=== PATIENT | female | born 1980 | race Hispanic/Latino ===

== ENCOUNTER 2018-08-06 09:52 | Emergency (ER) | payer OTHER ==
[2018-08-06] MEDS ORDERED: PEPCID PO ONE (10:32)
[2018-08-06] MEDS ORDERED: ZOFRAN ODT PO ONE (10:32)
[2018-08-06] MEDS ORDERED: ULTRAM PO ONE (10:32)
[2018-08-06] MEDS ORDERED: FLAGYL PO ONE (11:15)
[2018-08-06] MEDS ORDERED: XYLOCAINE 1% MPF 5 mL INFILTRATI ONE (11:15)
[2018-08-06] MEDS ORDERED: ZITHROMAX PO ONE (11:15)
[2018-08-06] MEDS ORDERED: ROCEPHIN IM ONE (11:15)
[2018-08-06 11:19] LABS: Basophils % (Auto) 0.7 % (0.0-1.8); Eosinophils # (Auto) 0.1 K/mm3 (0.0-0.4); Eosinophils % (Auto) 1.5 % (0.0-4.3); Hematocrit 37.5 % (30.3-42.9); Hemoglobin 12.9 gm/dl (10.1-14.3); Lymphocytes # (Auto) 2.1 K/mm3 (1.2-5.4); Lymphocytes % (Auto) 37.8 % (13.4-35.0); Mean Corpuscular HGB Conc 34 % (30-34); Mean Corpuscular Volume 94 fl (79-97); Monocytes # (Auto) 0.5 K/mm3 (0.0-0.8); Platelet Count 255 K/mm3 (140-440); Red Blood Count 3.99 M/mm3 (3.65-5.03); Red Cell Distribution Width 12.2 % (13.2-15.2)
[2018-08-06 11:39] LABS: Bacteria,Urine 4+ /HPF (Negative); Bilirubin,Urine NEG (Negative); Blood,Urine NEG (Negative); Color,Urine Amber (Yellow); Mucus,Urine 3+ /HPF; Protein,Urine <15 mg/dL mg/dL (Negative); Urobilinogen,Urine < 2.0 mg/dL (<2.0)
[2018-08-06 11:42] LABS: Alanine Aminotransferase 9 units/L (7-56); Albumin 4.1 g/dL (3.9-5); BUN/Creatinine Ratio 22; Blood Urea Nitrogen 13 mg/dL (7-17); Calcium 8.7 mg/dL (8.4-10.2); Hemolysis Index 4
--- NOTE | 2018-08-06 12:39 | Ultrasound Report ---
Sonogram right upper quadrant: Next History: Right upper quadrant pain/epigastric pain. Findings: Normal aorta measures 1.7 cm. Fatty liver. No intrahepatic or extrahepatic ductal dilatation. Common bile duct diameter 2.5 mm. Gallbladder wall thickness 1.9 mm. Thick bile or sludge within the gallbladder. No pericholecystic fluid. Right kidney 10.5 x 5.2 x 5.4 cm. Cortical thickness 1.4 cm. Pancreas obscured by bowel gas. Impression: Thick bile or sludge within the gallbladder. Fatty liver.
--- NOTE | 2018-08-06 13:08 | Emergency Department Report ---
ED Abdominal Pain HPI - General Chief Complaint: Abdominal Pain Stated Complaint: ABD PAIN/NAUSEA Time Seen by Provider: 08/06/18 10:27 Source: patient Mode of arrival: Ambulatory Limitations: No Limitations - History of Present Illness Initial Comments: Patient is a 38-year-old female who is presenting with 6 days of epigastric discomfort. Patient states that it is associated with some nausea but she denies vomiting or diarrhea. Patient states the pain is constant low level but occasionally is worse. Patient states that it has decreased appetite. Patient denies any fevers chills at this time. Patient denies any dysuria vaginal discharge however she states she has had a known exposure to an STD. She is on sure which one she has been exposed to. Severity scale (0 -10): 6 - Related Data Previous Rx's Medication Instructions Recorded Last Taken Type Ibuprofen [Ibu] 600 mg PO Q6HR PRN #20 tablet 08/06/18 Unknown Rx Nitrofurantoin Monohyd/M-Cryst 100 mg PO BID #14 capsule 08/06/18 Unknown Rx [Macrobid 100 mg Capsule] Ondansetron [Zofran Odt] 4 mg PO Q8HR #10 tab.rapdis 08/06/18 Unknown Rx traMADol [Ultram] 50 mg PO Q6HR PRN #12 tablet 08/06/18 Unknown Rx Allergies Allergy/AdvReac Type Severity Reaction Status Date / Time No Known Allergies Allergy Unverified 08/06/18 09:59 ED Review of Systems ROS: Stated complaint: ABD PAIN/NAUSEA Other details as noted in HPI Comment: All other systems reviewed and negative ED Past Medical Hx - Medications Home Medications: Home Medications Medication Instructions Recorded Confirmed Last Taken Type Ibuprofen [Ibu] 600 mg PO Q6HR PRN #20 tablet 08/06/18 Unknown Rx Nitrofurantoin Monohyd/M-Cryst 100 mg PO BID #14 capsule 08/06/18 Unknown Rx [Macrobid 100 mg Capsule] Ondansetron [Zofran Odt] 4 mg PO Q8HR #10 tab.rapdis 08/06/18 Unknown Rx traMADol [Ultram] 50 mg PO Q6HR PRN #12 tablet 08/06/18 Unknown Rx ED Physical Exam - General Limitations: No Limitations General appearance: alert, in no apparent distress - Head Head exam: Present: atraumatic, normocephalic - Eye Eye exam: Present: normal appearance - ENT ENT exam: Present: mucous membranes moist - Neck Neck exam: Present: normal inspection - Respiratory Respiratory exam: Present: normal lung sounds bilaterally. Absent: respiratory distress, wheezes, rales, rhonchi, stridor - Cardiovascular Cardiovascular Exam: Present: regular rate, normal rhythm. Absent: systolic murmur, diastolic murmur, rubs, gallop - GI/Abdominal GI/Abdominal exam: Present: soft, tenderness (patient has some mild tenderness to the right upper quadrant and epigastrium. Patient also has tenderness to the suprapubic region. Is no rebound or guarding present.), normal bowel sounds. Absent: distended, guarding, rebound, rigid - Extremities Exam Extremities exam: Present: normal inspection - Back Exam Back exam: Present: normal inspection - Neurological Exam Neurological exam: Present: alert, oriented X3 - Psychiatric Psychiatric exam: Present: normal affect, normal mood - Skin Skin exam: Present: warm, dry, intact, normal color. Absent: rash ED Medical Decision Making - Lab Data Result diagrams: 08/06/18 10:54 08/06/18 10:54 Lab Results 08/06/18 08/06/18 08/06/18 Range/Units 10:54 10:54 10:54 WBC 5.5 (4.5-11.0) K/mm3 RBC 3.99 (3.65-5.03) M/mm3 Hgb 12.9 (10.1-14.3) gm/dl Hct 37.5 (30.3-42.9) % MCV 94 (79-97) fl MCH 32 (28-32) pg MCHC 34 (30-34) % RDW 12.2 L (13.2-15.2) % Plt Count 255 (140-440) K/mm3 Lymph % (Auto) 37.8 H (13.4-35.0) % [place] % (Auto) 9.0 H (0.0-7.3) % Eos % (Auto) 1.5 (0.0-4.3) % Baso % (Auto) 0.7 (0.0-1.8) % Lymph # 2.1 (1.2-5.4) K/mm3 [place] # 0.5 (0.0-0.8) K/mm3 Eos # 0.1 (0.0-0.4) K/mm3 Baso # 0.0 (0.0-0.1) K/mm3 Seg Neutrophils % 51.0 (40.0-70.0) % Seg Neutrophils # 2.8 (1.8-7.7) K/mm3 Sodium 141 (137-145) mmol/L Potassium 3.9 (3.6-5.0) mmol/L Chloride 104.4 (98-107) mmol/L Carbon Dioxide 30 (22-30) mmol/L Anion Gap 11 mmol/L BUN 13 (7-17) mg/dL Creatinine 0.6 L (0.7-1.2) mg/dL Estimated GFR > 60 ml/min BUN/Creatinine Ratio 22 % Glucose 95 (65-100) mg/dL Calcium 8.7 (8.4-10.2) mg/dL Total Bilirubin 0.50 (0.1-1.2) mg/dL AST 11 (5-40) units/L ALT 9 (7-56) units/L Alkaline Phosphatase 50 (35-129) units/L Total Protein 6.7 (6.3-8.2) g/dL Albumin 4.1 (3.9-5) g/dL Albumin/Globulin Ratio 1.6 % Lipase 38 (13-60) units/L HCG, Qual Negative (Negative) Urine Color (Yellow) Urine Turbidity (Clear) Urine pH (5.0-7.0) Ur Specific [place] (1.003-1.030) Urine Protein (Negative) mg/dL Urine Glucose (UA) (Negative) mg/dL Urine Ketones (Negative) mg/dL Urine Blood (Negative) Urine Nitrite (Negative) Ur Reducing Substances Urine Bilirubin (Negative) Urine Ictotest Urine Urobilinogen (<2.0) mg/dL Ur Leukocyte Esterase (Negative) Urine WBC (Auto) (0.0-6.0) /HPF Urine RBC (Auto) (0.0-6.0) /HPF U Epithel Cells (Auto) (0-13.0) /HPF Urine Bacteria (Auto) (Negative) /HPF Urine Mucus /HPF 08/06/18 Range/Units 11:01 WBC (4.5-11.0) K/mm3 RBC (3.65-5.03) M/mm3 Hgb (10.1-14.3) gm/dl Hct (30.3-42.9) % MCV (79-97) fl MCH (28-32) pg MCHC (30-34) % RDW (13.2-15.2) % Plt Count (140-440) K/mm3 Lymph % (Auto) (13.4-35.0) % [place] % (Auto) (0.0-7.3) % Eos % (Auto) (0.0-4.3) % Baso % (Auto) (0.0-1.8) % Lymph # (1.2-5.4) K/mm3 [place] # (0.0-0.8) K/mm3 Eos # (0.0-0.4) K/mm3 Baso # (0.0-0.1) K/mm3 Seg Neutrophils % (40.0-70.0) % Seg Neutrophils # (1.8-7.7) K/mm3 Sodium (137-145) mmol/L Potassium (3.6-5.0) mmol/L Chloride (98-107) mmol/L Carbon Dioxide (22-30) mmol/L Anion Gap mmol/L BUN (7-17) mg/dL Creatinine (0.7-1.2) mg/dL Estimated GFR ml/min BUN/Creatinine Ratio % Glucose (65-100) mg/dL Calcium (8.4-10.2) mg/dL Total Bilirubin (0.1-1.2) mg/dL AST (5-40) units/L ALT (7-56) units/L Alkaline Phosphatase (35-129) units/L Total Protein (6.3-8.2) g/dL Albumin (3.9-5) g/dL Albumin/Globulin Ratio % Lipase (13-60) units/L HCG, Qual (Negative) Urine Color [place] (Yellow) Urine Turbidity Slightly-cloudy (Clear) Urine pH 6.0 (5.0-7.0) Ur Specific [place] 1.027 (1.003-1.030) Urine Protein <15 mg/dl (Negative) mg/dL Urine Glucose (UA) Neg (Negative) mg/dL Urine Ketones Neg (Negative) mg/dL Urine Blood Neg (Negative) Urine Nitrite Pos (Negative) Ur Reducing Substances Not Reportable Urine Bilirubin Neg (Negative) Urine Ictotest Not Reportable Urine Urobilinogen < 2.0 (<2.0) mg/dL Ur Leukocyte Esterase Neg (Negative) Urine WBC (Auto) 12.0 H (0.0-6.0) /HPF Urine RBC (Auto) 2.0 (0.0-6.0) /HPF U Epithel Cells (Auto) 3.0 (0-13.0) /HPF Urine Bacteria (Auto) 4+ (Negative) /HPF Urine Mucus 3+ /HPF - Radiology Data [facility] [address] [place] [address] Ultrasound Report Signed Patient: CLIVE NEWBY MR#: [id number] : 1980 Acct:[id number] Age/Sex: 38 / F ADM Date: 08/06/18 Loc: ED Attending Dr: Ordering Physician: FELIPE KLEIN MD Date of Service: 08/06/18 Procedure(s): US abdomen limited Accession Number(s): [id number] cc: FELIPE KLEIN MD Sonogram right upper quadrant: Next History: Right upper quadrant pain/epigastric pain. Findings: Normal aorta measures 1.7 cm. Fatty liver. No intrahepatic or extrahepatic ductal dilatation. Common bile duct diameter 2.5 mm. Gallbladder wall thickness 1.9 mm. Thick bile or sludge within the gallbladder. No pericholecystic fluid. Right kidney 10.5 x 5.2 x 5.4 cm. Cortical thickness 1.4 cm. Pancreas obscured by bowel gas. Impression: Thick bile or sludge within the gallbladder. Fatty liver. Transcribed By: PTP Dictated By: BERNARDO THOMAS MD Electronically Authenticated By: BERNARDO THOMAS MD Signed Date/Time: 08/06/18 1218 DD/ 1216 - Medical Decision Making Patient has had a known STD exposure and does have some suprapubic pain. Patient was treated with azithromycin and Rocephin and Flagyl. Patient also w ill be given a prescription for Macrobid as well. Did also have a long conversation about biliary colic and low-fat diet with the patient and the patient be given follow-up with GI. Patient's pain and nausea was improved here in the emergency department patient be discharged home. Critical care attestation.: If time is entered above; I have spent that time in minutes in the direct care of this critically ill patient, excluding procedure time. ED Disposition Clinical Impression: Biliary colic, STD exposure UTI (urinary tract infection) Qualifiers: Urinary tract infection type: site unspecified Hematuria presence: without hematuria Qualified Code(s): N39.0 - Urinary tract infection, site not specified Disposition: - TO HOME OR SELFCARE Is pt being admited?: No Does the pt Need Aspirin: No Condition: Stable Instructions: Biliary Colic (ED), Low Fat Diet (ED), Urinary Tract Infection in Women (ED) Referrals: PERLA VELEZ MD [Primary Care Provider] - 3-5 Days [facility] [Provider Group] - 3-5 Days Time of Disposition: 13:09
== END 2018-08-06 13:15 | disposition home or self-care (01) ==
LOC: ED 09:52
DX: K80.50 Calculus of bile duct without cholangitis or cholecystitis without obstruction (principal)
CPT/HCPCS: 36415; 76705; 80053; 81001; 83690; 84703; 85025; 96372; 99284; J0696; Q0162

== ENCOUNTER 2018-09-01 20:00 | Emergency (ER) | payer MEDICAID, OTHER ==
--- NOTE | 2018-09-01 21:45 | Emergency Department Report ---
Chief Complaint: Burn/Smoke Inhalation Stated Complaint: SUN POISONING Time Seen by Provider: 09/01/18 21:43 - HPI History of Present Illness: pt presents for sunburn states she got sunburned yesterday states she used aloe without relief PMHx of HTN MSE screening note: Focused history and physical exam performed. ED Disposition for MSE Condition: Stable
[2018-09-02] MEDS ORDERED: BENADRYL PO ONE (00:46)
[2018-09-02] MEDS ORDERED: IBUPROFEN PO ONE (00:46)
--- NOTE | 2018-09-02 00:50 | Emergency Department Report ---
ED General Adult HPI - General Chief complaint: Burn/Smoke Inhalation Stated complaint: SUN POISONING Time Seen by Provider: 09/01/18 21:43 Source: patient Mode of arrival: Ambulatory Limitations: No Limitations - History of Present Illness Initial comments: Pt presents for sunburn states she got sunburned yesterday states she used aloe without relief PMHx of HTN Onset/Timin -: days(s) Location: back, upper extremity, lower extremity Radiation: non-radiation Severity scale (0 -10): 3 Quality: burning Consistency: intermittent Improves with: rest Worsens with: other (heat exposure ) Associated Symptoms: denies other symptoms Treatments Prior to Arrival: none - Related Data Previous Rx's Medication Instructions Recorded Last Taken Type Ibuprofen [Ibu] 600 mg PO Q6HR PRN #20 tablet 08/06/18 Unknown Rx Nitrofurantoin Monohyd/M-Cryst 100 mg PO BID #14 capsule 08/06/18 Unknown Rx [Macrobid 100 mg Capsule] Ondansetron [Zofran Odt] 4 mg PO Q8HR #10 tab.rapdis 08/06/18 Unknown Rx traMADol [Ultram] 50 mg PO Q6HR PRN #12 tablet 08/06/18 Unknown Rx Aluminum, (Acetato-O)Dihydroxy 1 applicatio TP BID 10 Days #1 09/02/18 Unknown Rx [Aluminum Acetate] bottle Ibuprofen 800 mg PO TID PRN #30 tablet 09/02/18 Unknown Rx Lanolin /Mo/W.pet/[place] (Nf) 1 applicatio TP BID 14 Days #1 jar 09/02/18 Unknown Rx [EUCERIN (nf)] Allergies Allergy/AdvReac Type Severity Reaction Status Date / Time No Known Allergies Allergy Verified 09/01/18 20:04 ED Review of Systems ROS: Stated complaint: SUN POISONING Other details as noted in HPI Constitutional: denies: chills, fever Eyes: denies: eye pain, eye discharge, vision change ENT: denies: ear pain, throat pain Respiratory: denies: cough, shortness of breath, wheezing Cardiovascular: denies: chest pain, palpitations Endocrine: no symptoms reported Gastrointestinal: denies: abdominal pain, nausea, diarrhea Genitourinary: denies: urgency, dysuria, discharge Musculoskeletal: denies: back pain, joint swelling, arthralgia Skin: denies: rash, lesions Neurological: denies: headache, weakness, paresthesias Psychiatric: denies: anxiety, depression Hematological/Lymphatic: denies: easy bleeding, easy bruising ED Past Medical Hx - Past Medical History Hx Hypertension: Yes - Surgical History Past Surgical History?: No - Social History Smoking Status: Never Smoker Substance Use Type: None - Medications Home Medications: Home Medications Medication Instructions Recorded Confirmed Last Taken Type Ibuprofen [Ibu] 600 mg PO Q6HR PRN #20 tablet 08/06/18 Unknown Rx Nitrofurantoin Monohyd/M-Cryst 100 mg PO BID #14 capsule 08/06/18 Unknown Rx [Macrobid 100 mg Capsule] Ondansetron [Zofran Odt] 4 mg PO Q8HR #10 tab.rapdis 08/06/18 Unknown Rx traMADol [Ultram] 50 mg PO Q6HR PRN #12 tablet 08/06/18 Unknown Rx Aluminum, (Acetato-O)Dihydroxy 1 applicatio TP BID 10 Days #1 09/02/18 Unknown Rx [Aluminum Acetate] bottle Ibuprofen 800 mg PO TID PRN #30 tablet 09/02/18 Unknown Rx Lanolin /Mo/W.pet/[place] (Nf) 1 applicatio TP BID 14 Days #1 jar 09/02/18 Unknown Rx [EUCERIN (nf)] ED Physical Exam - General Limitations: No Limitations General appearance: alert, in no apparent distress - Head Head exam: Present: atraumatic, normocephalic - Eye Eye exam: Present: normal appearance, PERRL, EOMI Pupils: Present: normal accommodation - ENT ENT exam: Present: normal orophraynx, mucous membranes moist, TM's normal bilaterally, normal external ear exam - Neck Neck exam: Present: normal inspection, full ROM. Absent: lymphadenopathy - Respiratory Respiratory exam: Present: normal lung sounds bilaterally. Absent: respiratory distress, chest wall tenderness - Cardiovascular Cardiovascular Exam: Present: regular rate, normal rhythm, normal heart sounds. Absent: systolic murmur, diastolic murmur, rubs, gallop - GI/Abdominal GI/Abdominal exam: Present: soft. Absent: tenderness, bruit, hernia - Rectal Rectal exam: Present: deferred - Extremities Exam Extremities exam: Present: normal inspection, full ROM, normal capillary refill. Absent: tenderness, calf tenderness - Back Exam Back exam: Present: normal inspection, full ROM, tenderness, other. Absent: CVA tenderness (R), CVA tenderness (L), muscle spasm, paraspinal tenderness, rash noted - Neurological Exam Neurological exam: Present: alert, oriented X3, CN II-XII intact, normal gait, reflexes normal - Psychiatric Psychiatric exam: Present: normal affect, normal mood - Skin Skin exam: Present: warm, dry, intact, erythema, other (mild generalized erythema no blistering no weeping warm to touch to trunk back upper ad lower extremes neck ) ED Course Vital Signs 09/01/18 21:45 Temperature 98.8 F Pulse Rate 98 H Respiratory 18 Rate Blood Pressure 133/96 O2 Sat by Pulse 100 Oximetry ED Medical Decision Making - Medical Decision Making this is straight forward sunburn pt states she was at music festival this week without sunblock, plan: aluminum acetate, eurocin , ibuprofen, use sunblock going forward. Critical care attestation.: If time is entered above; I have spent that time in minutes in the direct care of this critically ill patient, excluding procedure time. ED Disposition Clinical Impression: Sunburn of first degree Disposition: -01 TO HOME OR SELFCARE Is pt being admited?: No Does the pt Need Aspirin: No Condition: Stable Instructions: Sunburn (ED) Prescriptions: Aluminum, (Acetato-O)Dihydroxy [Aluminum Acetate] 1 applicatio TP BID 10 Days #1 bottle Lanolin /Mo/W.pet/[place] (Nf) [EUCERIN (nf)] 1 applicatio TP BID 14 Days #1 jar Ibuprofen 800 mg PO TID PRN #30 tablet PRN Reason: pain Referrals: [facility] [Outside] - 3-5 Days Forms: Work/School Release Form(ED) Time of Disposition: 01:04
[2018-09-02 01:39] VITALS: BP 129/82
== END 2018-09-02 01:39 | disposition home or self-care (01) ==
LOC: ED 20:00
DX: L55.0 Sunburn of first degree (principal); I10 Essential (primary) hypertension
CPT/HCPCS: 99282

== ENCOUNTER 2020-10-16 21:28 | Emergency (ER) | payer SELFPAY ==
[2020-10-16 23:42] LABS: Bacteria,Urine 4+ /HPF (Negative); Bilirubin,Urine NEG (Negative); Blood,Urine NEG (Negative); Color,Urine Yellow (Yellow); Mucus,Urine FEW /HPF; Protein,Urine <15 mg/dL mg/dL (Negative); Urobilinogen,Urine < 2.0 mg/dL (<2.0)
[2020-10-16 23:46] LABS: HCG Qualitative,Urine Negative (Negative)
--- NOTE | 2020-10-17 03:55 | Cat Scan Report ---
CT ABDOMEN AND PELVIS WITHOUT CONTRAST INDICATION: Left-sided flank and pelvic pain TECHNICAL: Multiple axial CT images of the abdomen and pelvis were acquired without intravenous contr ast. Sagittal and coronal reformats were obtained. All CTs at this facility utilize dose reduction techniques including automated exposure control, iterative reconstruction and weight based dosing whe n appropriate to reduce patient radiation dose to as low as reasonable achievable. COMPARISON: None. FINDINGS: Limited imaging of the bilateral lung bases demonstrates no acute abnormality. ABDOMEN: The liver, gallbladder, spleen, pancreas, bilateral adrenal glands and bilateral kidneys show no evid ence of acute abnormality. There is no evidence of obstructing renal or ureteral stone. The abdominal aorta is normal in caliber. There is no evidence of bowel obstruction. The appendix is visualized an d appears normal. PELVIS: No free fluid is seen within the pelvis. The urinary bladder appears normal. BONES AND SOFT TISSUES: No significant abnormality. IMPRESSION: 1. No evidence of acute inflammatory or obstructive process within the abdomen or pelvis. Signer Name: Tonie Prince MD Signed: 10/17/2020 3:51 AM Workstation Name: [id number]
--- NOTE | 2020-10-17 04:12 | Emergency Department Report ---
ED General Adult HPI - General Chief complaint: Urogenital-Female Stated complaint: POSSIBLE UTI/KIDNEY STONES Time Seen by Provider: 10/17/20 02:35 Source: patient Mode of arrival: Ambulatory Limitations: No Limitations - History of Present Illness Initial comments: 40-year-old female [facility] emerge department complaining of left flank pain that radiates to the suprapubic region of a sharp and crampy in nature for which she states feels like her usual kidney stone presentation. She reports that she thought about the pain gets very severe and then begins to subside off and on from unknown etiology. -: Gradual Radiation: flank (Left flank region radiates to the suprapubic region) Quality: aching, dull Consistency: constant Improves with: none Worsens with: none Associated Symptoms: denies: chest pain, cough, diaphoresis, loss of appetite, nausea/vomiting, syncope, weakness Treatments Prior to Arrival: none - Related Data Previous Rx's Medication Instructions Recorded Last Taken Type Ibuprofen [Ibu] 600 mg PO Q6HR PRN #20 tablet 08/06/18 Unknown Rx Nitrofurantoin Monohyd/M-Cryst 100 mg PO BID #14 capsule 08/06/18 Unknown Rx [Macrobid 100 mg Capsule] Ondansetron [Zofran Odt] 4 mg PO Q8HR #10 tab.rapdis 08/06/18 Unknown Rx traMADoL [Ultram] 50 mg PO Q6HR PRN #12 tablet 08/06/18 Unknown Rx Aluminum, (Acetato-O)Dihydroxy 1 applicatio TP BID 10 Days #1 09/02/18 Unknown Rx [Aluminum Acetate] bottle Ibuprofen [Ibuprofen 800] 800 mg PO TID PRN #30 tablet 09/02/18 Unknown Rx Lanolin /Mo/W.pet/Hamill (Nf) 1 applicatio TP BID 14 Days #1 jar 09/02/18 Unknown Rx [EUCERIN (nf)] Ketorolac [Toradol] 10 mg PO Q6H PRN #10 tablet 10/17/20 Unknown Rx Allergies Allergy/AdvReac Type Severity Reaction Status Date / Time No Known Allergies Allergy Verified 09/01/18 20:04 ED Review of Systems ROS: Stated complaint: POSSIBLE UTI/KIDNEY STONES Other details as noted in HPI Comment: All other systems reviewed and negative ED Past Medical Hx - Past Medical History Hx Hypertension: Yes Additional medical history: Kidney stone - Social History Smoking Status: Never Smoker - Medications Home Medications: Home Medications Medication Instructions Recorded Confirmed Last Taken Type Ibuprofen [Ibu] 600 mg PO Q6HR PRN #20 tablet 08/06/18 Unknown Rx Nitrofurantoin Monohyd/M-Cryst 100 mg PO BID #14 capsule 08/06/18 Unknown Rx [Macrobid 100 mg Capsule] Ondansetron [Zofran Odt] 4 mg PO Q8HR #10 tab.rapdis 08/06/18 Unknown Rx traMADoL [Ultram] 50 mg PO Q6HR PRN #12 tablet 08/06/18 Unknown Rx Aluminum, (Acetato-O)Dihydroxy 1 applicatio TP BID 10 Days #1 09/02/18 Unknown Rx [Aluminum Acetate] bottle Ibuprofen [Ibuprofen 800] 800 mg PO TID PRN #30 tablet 09/02/18 Unknown Rx Lanolin /Mo/W.pet/Hamill (Nf) 1 applicatio TP BID 14 Days #1 jar 09/02/18 Unknown Rx [EUCERIN (nf)] Ketorolac [Toradol] 10 mg PO Q6H PRN #10 tablet 10/17/20 Unknown Rx ED Physical Exam - General Limitations: No Limitations General appearance: alert, in no apparent distress - Head Head exam: Present: atraumatic, normocephalic - Eye Eye exam: Present: normal appearance, PERRL, EOMI Pupils: Present: normal accommodation - ENT ENT exam: Present: normal exam, normal orophraynx, mucous membranes moist - Neck Neck exam: Present: normal inspection - Respiratory Respiratory exam: Present: normal lung sounds bilaterally. Absent: respiratory distress - Cardiovascular Cardiovascular Exam: Present: regular rate, normal rhythm. Absent: systolic murmur, diastolic murmur, rubs, gallop - GI/Abdominal GI/Abdominal exam: Present: soft, tenderness (To the left lower quadrant region), normal bowel sounds - Extremities Exam Extremities exam: Present: normal inspection - Back Exam Back exam: Present: normal inspection, CVA tenderness (L) - Neurological Exam Neurological exam: Present: alert, oriented X3 - Psychiatric Psychiatric exam: Present: normal affect, normal mood - Skin Skin exam: Present: warm, dry, intact, normal color. Absent: rash ED Course Vital Signs 10/16/20 22:48 Temperature 98.3 F Pulse Rate 67 Respiratory 18 Rate Blood Pressure 178/101 O2 Sat by Pulse 99 Oximetry ED Medical Decision Making - Lab Data Lab Results 10/16/20 Range/Units 23:00 Urine Color Yellow (Yellow) Urine Turbidity Clear (Clear) Urine pH 7.0 (5.0-7.0) Ur Specific [place] 1.014 (1.003-1.030) Urine Protein <15 mg/dl (Negative) mg/dL Urine Glucose (UA) Neg (Negative) mg/dL Urine Ketones Neg (Negative) mg/dL Urine Blood Neg (Negative) Urine Nitrite Neg (Negative) Urine Bilirubin Neg (Negative) Urine Urobilinogen < 2.0 (<2.0) mg/dL Ur Leukocyte Esterase Sm (Negative) Urine WBC (Auto) 5.0 (0.0-6.0) /HPF Urine RBC (Auto) 3.0 (0.0-6.0) /HPF U Epithel Cells (Auto) 4.0 (0-13.0) /HPF Urine Bacteria (Auto) 4+ (Negative) /HPF Urine Mucus Few /HPF Urine HCG, Qual Negative (Negative) - Radiology Data Radiology results: report reviewed [facility] [address] [place] [address] Cat Scan Report Signed Patient: CLIVE NEWBY MR#: [id number] : 1980 Acct:[id number] Age/Sex: 40 / F ADM Date: 10/16/20 Loc: ED Attending Dr: Ordering Physician: JOCLEYNE GARCÍA Date of Service: 10/17/20 Procedure(s): CT abdomen pelvis wo con Accession Number(s): [id number] cc: JOCELYNE GARCÍA CT ABDOMEN AND PELVIS WITHOUT CONTRAST INDICATION: Left-sided flank and pelvic pain TECHNICAL: Multiple axial CT images of the abdomen and pelvis were acquired without intravenous contrast. Sagittal and coronal reformats were obtained. All CTs at this facility utilize dose re duction techniques including automated exposure control, iterative reconstruction and weight based dosing when appropriate to reduce patient radiation dose to as low as reasonable achievable. COMPARISON: None. FINDINGS: Limited imaging of the bilateral lung bases demonstrates no acute abnormality. ABDOMEN: The liver, gallbladder, spleen, pancreas, bilateral adrenal glands and bilateral kidneys show no evidence of acute abnormality. There is no evidence of obstructing renal or ureteral stone. The abdominal aorta is normal in caliber. There is no evidence of bowel obstruction. The appendix is visualized and appears normal. PELVIS: No free fluid is seen within the pelvis. The urinary bladder appears normal. BONES AND SOFT TISSUES: No significant abnormality. IMPRESSION: 1. No evidence of acute inflammatory or obstructive process within the abdomen or pelvis. Signer Name: Tonie Prince MD Signed: 10/17/2020 3:51 AM Workstation Name: [id number] Transcribed By: EB Dictated By: Tonie Prince MD Electronically Authenticated By: Tonie Prince MD Signed Date/Time: 10/17/20 035 DD/ 034 TD/TT: Print Cancel - Medical Decision Making This patient presents with abdominal pain of unclear etiology. A CT scan was performed to evaluate for potential causes of the abdominal pain, however, neither the clinical exam nor the CT has identified an emergent etiology for the abdominal pain. Specifically, given the benign exam, the laboratory studies, and unremarkable CT, I have a very low suspicion for appendicitis, ischemic bowel, bowel perforation, or any other life threatening disease. I have discussed with the patient the level of uncertainty with undifferentiated abdominal pain and clearly explained the need to follow-up as noted on the discharge instructions, or return to the Emergency Department immediately if the pain worsens, develops fever, persistent and uncontrollable vomiting, or for any new symptoms or concerns. Critical care attestation.: If time is entered above; I have spent that time in minutes in the direct care of this critically ill patient, excluding procedure time. ED Disposition Clinical Impression: Abdominal pain, Dysuria Disposition: -01 TO HOME OR SELFCARE Is pt being admited?: No Does the pt Need Aspirin: No Condition: Stable Instructions: Dysuria, Flank Pain, Adult, [id number], Abdominal Pain, Adult Prescriptions: Ketorolac [Toradol] 10 mg PO Q6H PRN #10 tablet PRN Reason: Pain Referrals: ZACH AVELAR MD [Staff Physician] - 3-5 Days
[2020-10-17 04:56] VITALS: BP 143/87
== END 2020-10-17 04:38 | disposition home or self-care (01) ==
LOC: ED 21:28
DX: R10.32 Left lower quadrant pain (principal); R30.0 Dysuria; I10 Essential (primary) hypertension; Z87.442 Personal history of urinary calculi; Z79.899 Other long term (current) drug therapy
CPT/HCPCS: 74176; 81001; 81025; 99284